=== PATIENT | female | born 1990 | race Asian ===

== ENCOUNTER 2017-12-14 22:05 | Emergency (ER) | payer MEDICAID, OTHER ==
[~2017-12-14] VITALS: Ht 157.5 cm; Wt 99.8 kg
[2017-12-14 22:10] VITALS: Ht 157.5 cm; Wt 99.8 kg
[2017-12-15 00:34] LABS: UA SPECIFIC GRAVITY <=1.005 (1.005-1.035); microscopic required? YES; urine erythrocyte 2+ (NEGATIVE)
[2017-12-15 00:58] VITALS: BP 124/69
== END 2017-12-15 00:58 | disposition home or self-care (01) ==
LOC: ED 22:05
PROVIDERS: Emergency Medicine
DX: J11.1 Influenza due to unidentified influenza virus with other respiratory manifestations (principal); B34.9 Viral infection, unspecified
CPT/HCPCS: 87804; J1885; Q0092